=== PATIENT | male | born 1950 | race Caucasian/White ===

== ENCOUNTER 2019-09-11 17:17 | Observation (INO) | payer OTHER ==
--- OUTSIDE RECORDS SUMMARY | 2019-09-11 17:20 | XMS REPORT | Summary of Care ---
:1950 Author Organization [facility] Address [address] [place] [id number] Care Team Providers Name Role Phone Efrem Paiz MD Primary Care Provider [phone] Reason for Visit Reason Comments Refill Request Encounter Details Date Type Department Care Team Description 06/28/2019 Refill [facility] Family Medicine Efrem Gonzalez MD Refill Request - [address] [place] [address] [place] [address] [phone] Allergies No Known Allergiesdocumented as of this encounter (statuses as of 07/01/2019) Medications Medication Sig Dispensed Refills Start Date End Date Status valACYclovir Take 1 60 tablet 5 06/05/2018 Active (VALTREX) 500 mg tablet by tabletIndications: mouth 2 Lip ulcer (two) times daily. levothyroxine 150 Take 1 90 tablet 0 07/01/2019 A ctive mcg tablet by tabletIndications: mouth every Acquired morning. hypothyroidism levothyroxine 150 Take 1 30 tablet 5 10/14/2018 D iscontinued mcg tablet by 0 (Reorder) tabletIndications: mouth every Acquired morning. hypothyroidism documented as of this encounter (statuses as of 07/01/2019) Active Problems Problem Noted Date Essential hypertension 05/30/2016 Hypothyroid 02/22/2015 documented as of this encounter (statuses as of 07/01/2019) Social History Tobacco Use Types Packs/Day Years Used Date Never Smoker Smokeless Tobacco: Never Used Alcohol Use Drinks/Week oz/Week Comments No 0 Standard drinks or equivalent 0.0 Sex Assigned at Date Recorded Not on file Job Start Date Occupation Industry Not on file Not on file Not on file Travel History Travel Start Travel End No recent travel history available. documented as of this encounter Last Filed Vital Signs Not on filedocumented in this encounter Plan of Treatment Health Maintenance Due Date Last Done Comments HEPATITIS C (HCV) SCREEN 1950 DTaP,Tdap,and Td Vaccines (1 - Tdap) 09/10/1962 COLONOSCOPY 09/10/2001 Zoster Recombinant Vaccine (SHINGRIX) (1 of 2) 09/10/2001 Medicare Wellness Visit 09/10/2016 PNEUMOCOCCAL VACCINES 65+ (1 of 2 - PCV13) 09/10/2016 INFLUENZA VACCINE (#1) 2018 documented as of this encounter Results Not on filedocumented in this encounter Visit Diagnoses Diagnosis Acquired hypothyroidism Unspecified hypothyroidism documented in this encounter Insurance Payer Benefit Plan / Subscriber ID Effective Dates Phone Addre ss Type Group MEDICARE MEDICARE PART A xxxxxxxxxxx 2016-Jazz [phone] Medicare & [address] t [id number] ALLA CORNELIUS [phone] AETNA AETNA INDEMNITY [id number] 2016-Jazz Indemnity t documented as of this encounter
--- OUTSIDE RECORDS SUMMARY | 2019-09-11 17:20 | XMS REPORT ---
:1950 Author Organization [facility] t Address [address] [place] [address] Care Team Providers Name Role Phone Aki Paiz MD Attending Clinician Problems This patient has no known problems. Allergies, Adverse Reactions, Alerts This patient has no known allergies or adverse reactions. Medications This patient has no known medications. Procedures This patient has no known procedures. Encounters Start End Encounter Admission Attending Care Care Encounter Source Date/Time Date/Time Type Type Clinicians Facility Department ID 2019-06-28 2019-06-28 Refill HARLEY Paiz [id number] 00:00:00 00:00:00 [facility] [id number] Aki Yeboah [id number] Brett [id number] [address] Results This patient has no known results.
--- NOTE | 2019-09-11 17:46 | RAD REPORT ---
EXAM DESCRIPTION: RAD - Hand Right 3 View - 09/11/2019 5:34 pm CLINICAL HISTORY: SMASH INJURY COMPARISON: No comparisons FINDINGS: Tuft fracture is seen involving the second finger. Oblique mildly displaced fracture invol ves the middle phalanx of the third digit. Moderate soft tissue swelling.
[2019-09-11 18:13] LABS: Absolute Lymphocytes (CBC) 1.6 K/uL (0.7-4.9); Basophils % 0.7 % (0-1.3); Hematocrit 49.3 % (39.6-49.0); Lymphocytes % 16.3 % (15.3-44.8); RBC Red Blood Cell Count 5.59 M/uL (4.33-5.43)
[2019-09-11 18:22] LABS: Protime INR 1.06
[2019-09-11] MEDS ORDERED: CEFAZOLIN/SWI 1gm 1 GM/10 ML SYR ONE (18:23)
[2019-09-11] MEDS ORDERED: MORPHINE 2 MG/ML SYR ONE (18:23)
[2019-09-11] MEDS ORDERED: ONDANSETRON 4 MG/2 ML VIAL IV PRN (18:24)
[2019-09-11] MEDS ORDERED: ACETAMINOPHEN 500 MG TAB PO PRN (18:24)
[2019-09-11] MEDS ORDERED: MORPHINE 2 MG/ML SYR IV PRN (18:28)
[2019-09-11] MEDS ORDERED: HYDROCODONE/APAP 10/325 TAB PO PRN (18:28)
[2019-09-11] MEDS ORDERED: TETANUS & DIPHTHERIA TOX,ADULT 0.5 ML VIAL ONE (18:30)
[2019-09-11 18:39] LABS: Albumin 3.7 g/dL (3.4-5.0); Bilirubin Direct 0.1 mg/dL (0-0.2); Bilirubin Total 0.5 mg/dL (0.2-1.0); Potassium 4.1 mmol/L (3.5-5.1); Protein, Total 7.6 g/dL (6.4-8.2)
--- NOTE | 2019-09-11 18:50 | RAD REPORT ---
EXAM DESCRIPTION: RAD - Chest Single View - 09/11/2019 6:18 pm CLINICAL HISTORY: crush injury to right hand Chest pain. COMPARISON: Chest Single View dated 05/16/2016 FINDINGS: Portable technique limits examination quality. The lungs are grossly clear. The heart is normal in size. No displaced fractures. IMPRESSION: No acute intrathoracic process suspected.
--- NOTE | 2019-09-11 19:12 | P.HP ---
Certification for Inpatient Patient admitted to: Observation With expected LOS: <2 Midnights Practitioner: I am a practitioner with admitting privileges, knowledge of patient current condition, hospital course, and medical plan of care. Services: Services provided to patient in accordance with Admission requirements found in Title 42 Section 412.3 of the Code of Federal Regulations Patient History Date of Service: 09/11/19 Reason for admission: Pain in the fingers History of Present Illness: 69-year-old male with no significant past medical history other than hyperlipidemia and hypothyroidism came to ER with crashed injury of the right fingers. He was assisting a friend of him to repair tractor and all of a sudden injured his right index and middle finger . Complains of pain and difficulty in moment. Denies any other complaints Allergies No Known Allergies Allergy (Verified 05/16/16 05:49) Home medications list reviewed: Yes Home Medications: Thyroid Tab [[place] Thyroid*] 60 mg PO DAILY 05/16/16 Amlodipine [Norvasc*] 5 mg PO DAILY #30 tab 05/19/16 Levofloxacin [Levaquin] 500 mg PO DAILY #7 tablet 05/19/16 Metronidazole 500 mg PO TID #21 tablet 05/19/16 Pantoprazole [Protonix Tab*] 40 mg PO DAILYAC #30 tab 05/19/16 Tramadol HCl [Ultram] 50 mg PO Q4H PRN #20 tablet 05/20/16 - Past Medical/Surgical History Diabetic: No Past Medical History: Reviewed- Non-Contributory -: Hypothyroidism -: GERD Past Surgical History: Reviewed- Non-Contributory -: Hernia repair - Social History Smoking Status: Never smoker Alcohol use: Yes CD- Drugs: No Caffeine use: Yes Review of Systems 10-point ROS is otherwise unremarkable Physical Examination - Vital Signs Temperature: 97.8 F Blood Pressure: 142/78 Pulse: 76 - Physical Exam General: Alert, In no apparent distress, Obese HEENT: Atraumatic, Normocephalic Neck: Supple, 2+ carotid pulse no bruit Respiratory: Clear to auscultation bilaterally, Normal air movement Cardiovascular: Normal pulses, Regular rate/rhythm Capillary refill: <2 Seconds Gastrointestinal: Soft and benign, W/out hepatosplenomegaly Musculoskeletal: No clubbing, Tenderness, Warmth Integumentary: Tenderness/swelling, Other (Pain and swelling and crush injury right Index and middle finger ) Neurological: Normal speech, Normal strength at 5/5 x4 extr Lymphatics: No axilla or inguinal lymphadenopathy Rectal: Deferred - Studies Laboratory Data (last 24 hrs) 09/11/19 18:07: PT 12.5, INR 1.06 09/11/19 18:07: WBC 9.6, Hgb 16.3, Hct 49.3 H, Plt Count 351 09/11/19 18:07: Sodium 140, Potassium 4.1, BUN 22 H, Creatinine 1.27, Glucose 113 H, Total Bilirubin 0.5, AST 23, ALT 32, Alkaline Phosphatase 75 Assessment and Plan - Problems (Diagnosis) (1) Crushing injury of finger of right hand Current Visit: Yes Status: Acute Discharge Plan: Home Plan to discharge in: 24 Hours - Advance Directives Does patient have a Living Will: No Does patient have a Durable POA for Healthcare: No Physician Review Additional Text: Crush injury of the right fingers Hypothyroid Hyperlipidemia GERD Plan Pain control X-ray showed Tuft fracture is seen involving the second finger. Oblique mildly displaced fracture involves the middle phalanx of the third digit. Moderate soft tissue swelling. plastic surgery consult NPO post midnight Will add on Ancef Posted for surgery tomorrow Continue home medication GI/DVT prophylaxis Time Spent Managing Pts Care (In Minutes): 36
[2019-09-11 21:08] VITALS: BMI 28.6
[2019-09-12] MEDS ORDERED: CEFAZOLIN/NS 1gm 1 GM/50 ML BAG IVPB SCH (01:00)
[2019-09-12] MEDS ORDERED: CEFAZOLIN/SWI 1gm 1 GM/10 ML SYR ONE (01:37)
[2019-09-12 06:08] LABS: Absolute Lymphocytes (CBC) 1.3 K/uL (0.7-4.9); Basophils % 0.5 % (0-1.3); Hematocrit 44.9 % (39.6-49.0); Lymphocytes % 11.8 % (15.3-44.8)
[2019-09-12 06:20] LABS: Magnesium 2.2 mg/dL (1.8-2.4); Phosphorus 2.8 mg/dL (2.5-4.9); Potassium 3.9 mmol/L (3.5-5.1)
[2019-09-12 07:47] LABS: Urine Appearance CLEAR; Urine Bilirubin NEGATIVE (NEG); Urine Blood NEGATIVE (NEG); Urine Color YELLOW; Urine Glucose NEGATIVE (NEG); Urine Protein NEGATIVE (NEG); Urine Specific Gravity >=1.030 (1.005-1.030); Urine Urobilinogen 0.2 mg/dL (0.2-1.0)
[2019-09-12 07:58] LABS: Urine Microscopic Reflex NO UMIC
[2019-09-12] MEDS ORDERED: Ringers Lactate 1,000 ML IV ONE (08:17)
[2019-09-12] MEDS ORDERED: propofoL 200 MG/20 ML VIAL IV ONE (08:50)
[2019-09-12] MEDS ORDERED: LIDOCAINE 1% MPF 5 ML VIAL ONE (08:50)
[2019-09-12] MEDS ORDERED: ONDANSETRON 4 MG/2 ML VIAL ONE (08:50)
[2019-09-12] MEDS ORDERED: FENTANYL CITR 100 MCG/2 ML ONE (08:50)
[2019-09-12] MEDS ORDERED: MIDAZOLAM HCL 2 MG/2 ML INJ ONE (08:50)
[2019-09-12] MEDS ORDERED: dexAMETHasone 4 MG/ML VIAL ONE (08:51)
[2019-09-12] MEDS ORDERED: KETOROLAC 30 MG/ML INJ ONE (08:51)
[2019-09-12] MEDS ORDERED: CEFAZOLIN/SWI 1gm 1 GM/10 ML SYR IVP SCH (09:00)
[2019-09-12] MEDS: HYDRALAZINE HCL 20 MG/ML VIAL ONE ×2 (10:35→10:41)
[2019-09-12] MEDS: HYDROMORPHONE HCL 1 MG/ML INJ ONE ×2 (10:48→10:55)
[2019-09-12 10:58] VITALS: O2SAT 96
[2019-09-12] MEDS ORDERED: HYDRALAZINE HCL 20 MG/ML VIAL IV PRN (13:16)
[2019-09-12 14:07] VITALS: BP 164/80; TEMP 97.1
--- NOTE | 2019-09-12 14:07 | EKG ---
Test Date: 2019-09-11 Test Time: 18:36:06 Wildlife Ecologist: SANNA MEASUREMENT RESULTS: Intervals: Rate: 55 MN: 174 QRSD: 92 QT: 398 QTc: 380 [place]: P: 47 MN: 174 QRS: -20 T: 6 INTERPRETIVE STATEMENTS: Sinus bradycardia Moderate voltage criteria for LVH, may be normal variant Borderline ECG Compared to ECG 05/16/2016 03:01:06 Left ventricular hypertrophy now present Sinus rhythm no longer present Electronically Signed On 09-12-19 14:06:06 CDT by Bogdan Escalante
--- NOTE | 2019-09-12 20:51 | HP ---
Date of Admission: 09/11/2019 History Of Present Illness: A 69-year-old white male, right-hand dominant, who crushed his left index finger and left middle finger yesterday, came to the ER. Past Medical History: Thyroid surgery, hernia, lipoma, and left middle and ring finger tip amputation from crush injury in the past. Social History: Does not smoke. Drinks occasional. Physical Examination: General: He is 5 feet 10 inches, 200 pounds. Extremities: He has a transverse laceration and a volar laceration of the index finger with angulation of the tip. He has an open wound puncture site of the middle finger dorsal. Imaging: His x-ray showed fractures of the distal phalanx of the right index finger and the middle phalanx of the middle. Assessment: Open fracture. Plan: Debridement, ORIF, and closure. FLORIAN/KEVAN Voice ID: [id number]
--- NOTE | 2019-09-12 22:01 | RAD REPORT ---
EXAM DESCRIPTION: RAD - Hand Right 3 View - 09/12/2019 8:52 pm CLINICAL HISTORY: Distal phalanx fracture FINDINGS: Eighteen fluoroscopic spot images obtained. Fluoroscopy time 0.4 minutes A pin fuses the second PIP joint. A pin affixes a fracture of the third middle phalanx Surgery performed by Dr. Rosales
--- NOTE | 2019-09-12 23:27 | DS ---
Date of Discharge: 09/12/2019 Consultants: Dr. Rosales, Plastic Surgery. Procedures: On 09/12/2019, open reduction internal fixation 2nd and 3rd fingers of the right hand. Admitting Diagnoses: 1. Crush injury of 2nd and 3rd fingers of the right hand. 2. Hypothyroidism. 3. Gastroesophageal reflux disease. 4. Mixed hyperlipidemia. Hospital Course: Patient is a 69-year-old male with past medical history of hyperlipidemia, hypothyroidism, comes in with crush injury of the index and middle finger of his right hand due to trauma. Patient was started on IV pain medications, IV fluids, and IV antibiotics. Patient was seen by Dr. Rosales with Plastic Surgery. X-ray showed tuft fracture involving the 2nd finger/mildly displaced fracture involving the middle phalanx of the third digit, moderate soft tissue swelling. Patient was cleared for surgery and had ORIF done as mentioned above by Dr. Rosales. Patient did well postoperatively. His pain was well controlled. Patient was then cleared for discharge from surgical standpoint. Patient did not have any signs of sepsis. His vital signs were stable, he was afebrile. Blood pressure is somewhat not well controlled likely due to pain. He has never been diagnosed with it previously and is not on any medications at home. This may be related to his pain, however he should obtain a blood pressure cuff and keep a log of his blood pressure if continues to be elevated over 140s to 150 systolic. He will need to be started on blood pressure medications. This can be done as an outpatient and addressed by his primary care physician. He needs to follow up with plastic surgeon, Dr. Rosales, Friday morning, September 13, 2019, at 9 a.m. return to ER for worsening condition. Diet: Heart healthy. Activity: As tolerated. Medications: As per medication reconciliation list. Patient is going to finish off course of Bactrim and he was given Tylenol No.3 for pain. No driving or operating heavy machinery while on narcotics. Physical Examination: General: Awake, alert, and oriented x3. Elderly male, no acute distress. CV: S1, S2. Respiratory: Moving air well bilaterally. Abdomen: Abdomen is soft, nontender, nondistended. Positive bowel sounds. Extremities: No clubbing or cyanosis. Minimal edema of the right hand 2nd and 3rd digit in splint, bandaged. Clean, dry, intact. Neurologic: Nonfocal. SA/MODL Voice ID: [id number] Report ID: [id number] [facility]
[2019-09-13] MEDS ORDERED: HOME MED 1 EA UNK (Levothyroxine Sodium [Synthroid] 150 MCG) PO SCH (06:30)
[2019-09-13] MEDS ORDERED: LEVOTHYROXINE SOD 0.05 MG TABLET PO SCH (06:30)
[2019-09-13] MEDS ORDERED: LEVOTHYROXINE SOD 0.05 MG TABLET FT SCH (06:30)
--- NOTE | 2019-09-13 13:09 | OP ---
Surgeon: Brian Rosales MD Preoperative Diagnosis: Open fracture of the right index finger distal phalanx and right middle fing er middle phalanx with open wounds. Postoperative Diagnoses: Open fracture of the right index finger distal phalanx and right middle fin josefina middle phalanx with open wounds. Procedure Performed: Debridement of skin, subcutaneous tissue of the index, middle finger, nail bed repair of the index, simple closure of 3 cm of the index, fourth, and middle. Open reduction and int ernal fixation of the distal phalanx of the right index finger with K-wire arthrodesis and Open reduc tion and internal fixation of the middle phalanx of the middle finger with K-wire arthrodesis and spl int. Anesthesia: General. Procedure In Detail: After satisfactory induction of general anesthesia, the right hand was prepped with Betadine scrub and Betadine paint. Dry sterile drapes applied in the usual manner. Arm was celso vated and exsanguinated with Esmarch. Tourniquet inflated to 250 mmHg. Skin and subcutaneous tissue s were debrided as needed with a scalpel and forceps. Patient had a laceration over the volar flap o f the distal phalanx of the index finger and longitudinal lacerations over the middle phalanx of the middle finger. After the wounds were debrided, then they were jet lavaged, irrigated with 3 L of dil mack Betadine solution. 0.028 K-wire was passed from proximal to distal out the distal fracture fragm ent of the index finger and then proximally into the proximal portion of the distal phalanx and arthr odesing the DIP joint. C-arm revealed adequate reduction. Our attention was then turned to the midd le finger. 0.035 K-wire was passed from distal to proximal arthrodesing the DIP and then reducing th e fracture of the middle phalanx. C-arm revealed adequate reduction. The C-arm was moved to the [facility]. Then, the wounds were closed with 4-0 Prolene simple sutures vertical mattresses. Nail bed repa ired with 5-0 PDS. Nail plate was sewn, approximated with 4-0 Prolene. Dressed with Xeroform, 2 inc h Beth and aluminium splint holding the PIP and extension of the middle and index fingers. The luda ent tolerated the procedure well and returned to Recovery. GH/MODL Voice ID: [id number] Report ID: [id number]
--- NOTE | 2019-09-13 18:10 | EDPHYS ---
Physician Documentation [facility] Name: Efrem Osorio Age: 69 yrs Sex: Male : 1950 Arrival Date: 09/11/2019 Time: 17:18 Bed 17 Private MD: ED Physician Alfonso Magaña HPI: 09/10 17:58 This 69 yrs old Male presents to ER via Ambulatory with complaints of Finger cp Injury, Crush Injury To Hand. Historical: - Allergies: 17:33 No Known Allergies; em - PMHx: 17:33 GERD; Hypothyroidism; em - PSHx: 17:33 Hernia repair; em - Immunization history:: Last tetanus immunization: unknown. - Social history:: Smoking status: Patient denies any tobacco usage or history of. ROS: 18:00 MS/extremity: Positive for injury or acute deformity, laceration, pain, tenderness, of cp the right hand. 18:00 Eyes: Negative for injury, pain, redness, and discharge. cp 18:00 Constitutional: Negative for fever. 18:00 Respiratory: Negative for cough, shortness of breath, wheezing. 18:00 Abdomen/GI: Negative for abdominal pain, nausea, vomiting, and diarrhea. 18:00 Skin: Positive for laceration(s), of the middle phalanx of right middle finger and distal phalanx of right index finger. 18:00 All other systems are negative. Exam: 18:05 Constitutional: The patient appears in no acute distress, alert, awake, cp non-diaphoretic, non-toxic, well developed, well nourished. 18:05 Head/Face: Normocephalic, atraumatic. cp 18:05 Eyes: Periorbital structures: appear normal, Conjunctiva: normal, no exudate, no injection, Lids and lashes: appear normal, bilaterally. 18:05 ENT: External ear(s): are unremarkable, Nose: is normal, Mouth: Lips: moist, Oral mucosa: moist, Posterior pharynx: Airway: no evidence of obstruction, patent. 18:05 Chest/axilla: Inspection: normal, Palpation: is normal, no crepitus, no tenderness. 18:05 Cardiovascular: Rate: normal, Rhythm: regular. 18:05 Respiratory: the patient does not display signs of respiratory distress, Respirations: normal, no use of accessory muscles, labored breathing, is not present, Breath sounds: are clear throughout, no decreased breath sounds. 18:05 Abdomen/GI: Inspection: abdomen appears normal, Palpation: abdomen is soft and non-tender, in all quadrants. 18:05 Musculoskeletal/extremity: Perfusion: the extremity is normally perfused throughout, Sensation intact. 18:05 Skin: injury, laceration(s), of the middle phalanx of right middle finger, of the distal phalanx of right index finger, that can be described as no foreign body, irregular, with mild bleeding. 18:40 ECG was reviewed by the Attending Physician. Vital Signs: 17:29 BP 194 / 91; Pulse 58; Resp 20; Temp 97.8; Pulse Ox 95% on R/A; Weight 92.99 kg; Height em 5 ft. 10 in. (177.80 cm); Pain 5/10; 18:11 BP 175 / 89; Pulse 61; Resp 16 S; Pulse Ox 95% on R/A; ca1 19:10 BP 143 / 84; Pulse 77; Resp 16 S; Pulse Ox 100% on R/A; ca1 20:20 BP 131 / 84; Pulse 77; Resp 17 S; Pulse Ox 100% on R/A; ca1 17:29 Body Mass Index 29.41 (92.99 kg, 177.80 cm) em MDM: 17:41 Patient medically screened. cp 18:04 Physician consultation: Brian Rosales MD was called at 18:04, was contacted at 18:04, regarding consult, patient's condition, and will see patient tomorrow, would like admission per Dr. Felton Suarez MD. 18:16 Physician consultation: Felton Suarez MD was called at 18:16, was contacted at 18:16, regarding admission, to the medical/surgical unit. patient's condition. 18:16 Data reviewed: vital signs, nurses notes, radiologic studies, plain films, and as a cp result, I will admit patient. 09/10 18:03 Order name: Basic Metabolic Panel; Complete Time: 18:56 09/10 18:56 Interpretation: Normal except: CL 109; GLUC 113; BUN 22; GFR 56. cp 09/10 18:03 Order name: CBC with Diff; Complete Time: 18:56 cp 09/10 18:57 Interpretation: Normal except: RBC 5.59; HCT 49.3. cp 05/30 18:03 Order name: LFT's; Complete Time: 18:56 cp 05/30 18:57 Interpretation: Normal except: GLOB 3.9; A/G 0.9. cp 05/30 18:03 Order name: PT-INR; Complete Time: 18:56 cp /30 18:30 Order name: Urinalysis EDMS 09/10 18:30 Order name: Basic Metabolic Panel EDCT 09/10 17:29 Order name: Hand Right 3 View XRAY; Complete Time: 18:00 em 09/10 18:03 Order name: XRAY Chest (1 view); Complete Time: 18:56 cp 09/10 18:57 Interpretation: Report review. cp / 18:30 Order name: Basic Metabolic Panel EDCT 09/10 18:30 Order name: CBC with Automated Diff EDMS 09/10 18:30 Order name: CBC with Automated Diff EDMS 09/10 18:03 Order name: Wound Care: irrigate wounds and wet to dry dressing; Complete Time: 18:14 cp 09/10 18:03 Order name: EKG; Complete Time: 18:04 cp 09/10 18:03 Order name: Cardiac monitoring; Complete Time: 18:12 cp 09/10 18:03 Order name: EKG - Nurse/Tech; Complete Time: 18:39 cp 09/10 18:03 Order name: IV Saline Lock; Complete Time: 18:12 cp 09/10 18:03 Order name: Labs collected and sent; Complete Time: 18:13 cp 09/10 18:03 Order name: O2 Per Protocol; Complete Time: 18:13 cp 09/10 18:03 Order name: O2 Sat Monitoring; Complete Time: 18:13 cp 09/10 18:03 Order name: Splint: volar hand splint; Complete Time: 19:30 cp 09/10 18:30 Order name: Heart Healthy EDMS EC:40 Rate is 55 beats/min. Rhythm is regular. KS interval is normal. QRS interval is normal. cp QT interval is normal. T waves are Inverted in lead III. Interpreted by me. Reviewed by me. Administered Medications: 18:16 Drug: morphine 2 mg {Note: rass -0.} Route: IVP; Site: left antecubital; ca1 19:03 Follow up: Response: No adverse reaction; Pain is decreased; RASS: Alert and Calm (0) ca1 18:18 Drug: Ancef 1 grams Route: IVPB; Site: left antecubital; ca1 19:03 Follow up: Response: No adverse reaction; IV Status: Completed infusion ca1 18:39 Drug: Tetanus-Diphtheria Toxoid Adult 0.5 ml {Windows Support Engineer: [email or web address]. Exp: ca1 05/28/2021. Lot #: [id number]. } Route: IM; Site: right deltoid; 19:03 Follow up: Response: No adverse reaction ca1 Disposition: 09/11 14:33 Co-signature as Attending Physician, Alfonso Magaña MD I agree with the assessment and kdr plan of care. Disposition: 09/11/19 18:18 Hospitalization ordered by Felton Suarez for Observation. Preliminary diagnosis are Displaced fracture of medial phalanx of right middle finger - open, Displaced fracture of distal phalanx of right index finger - open with damage to nail. - Bed requested for Telemetry/MedSurg (observation). - Status is Observation. ca1 - Condition is Stable. - Problem is new. - Symptoms have improved. Signatures: Dispatcher [employer] EDMS Alfonso Magaña MD MD [facility] Stanley Garner RN RN em Mario Trevino PA PA cp Amanda Ramos RN RN Chely Woods RN RN ca1 Corrections: (The following items were deleted from the chart) 09/10 18:56 18:18 Hospitalization Ordered by Felton Suarez MD for Observation. Preliminary cg diagnosis is Displaced fracture of medial phalanx of right middle finger - open; Displaced fracture of distal phalanx of right index finger - open with damage to nail. Bed requested for Telemetry/MedSurg (observation). Status is Observation. Condition is Stable. Problem is new. Symptoms have improved. cp 20:54 18:56 09/11/2019 18:18 Hospitalization Ordered by Felton Suarez MD for Observation. ca1 Preliminary diagnosis is Displaced fracture of medial phalanx of right middle finger - open; Displaced fracture of distal phalanx of right index finger - open with damage to nail. Bed requested for Telemetry/MedSurg (observation). Status is Observation. Condition is Stable. Problem is new. Symptoms have improved. cg
--- NOTE | 2019-09-13 18:10 | ER ---
Nurse's Notes [facility] Name: Efrem Osorio Age: 69 yrs Sex: Male : 1950 Arrival Date: 09/11/2019 Time: 17:18 Bed 17 Private MD: Diagnosis: Displaced fracture of medial phalanx of right middle finger-open;Displaced fracture of distal phalanx of right index finger-open with damage to nail Presentation: 09/10 17:29 Chief complaint: Patient states: was working on a tractor and got his 2 nd and 3 rd em digit on right hand smashed between a cheater pipe and a wrench, crush injury noted to 3 rd digit, noted on 2 nd digit fingetnail, unknown if tetanus is up-to-date. Coronavirus screen: Proceed with normal triage. Patient denies a cough. Patient denies shortness of breath or difficulty breathing. Patient denies measured and/or subjective temperature greater than 100.4F prior to today's visit. Patient denies travel on a cruise ship or to a country the [facility] currently lists as an affected area. Patient denies contact with known and/or suspected case of COVID-19. Ebola Screen: Patient negative for fever greater than or equal to 101.5 degrees Fahrenheit, and additional compatible Ebola Virus Disease symptoms Patient denies exposure to infectious person. Patient denies travel to an Ebola-affected area in the 21 days before illness onset. No symptoms or risks identified at this time. Initial Sepsis Screen: Does the patient meet any 2 criteria? No. Patient's initial sepsis screen is negative. Does the patient have a suspected source of infection? Yes: Skin breakdown/wound. Risk Assessment: Do you want to hurt yourself or someone else? Patient reports no desire to harm self or others. Onset of symptoms was September 11, 2019 at 17:00. 17:29 Method Of Arrival: Ambulatory em 17:29 Acuity: ALEJANDRO 4 em Historical: - Allergies: 17:33 No Known Allergies; em - PMHx: 17:33 GERD; Hypothyroidism; em - PSHx: 17:33 Hernia repair; em - Immunization history:: Last tetanus immunization: unknown. - Social history:: Smoking status: Patient denies any tobacco usage or history of. Screenin:40 Abuse screen: Denies threats or abuse. Denies injuries from another. Nutritional ca1 screening: No deficits noted. Tuberculosis screening: No symptoms or risk factors identified. Fall Risk IV access (20 points). Assessment: 17:40 General: Appears in no apparent distress. comfortable, Behavior is calm, cooperative, ca1 appropriate for age. Pain: Complains of pain in right hand. Neuro: Level of Consciousness is awake, alert, obeys commands, Oriented to person, place, time, situation. Cardiovascular: Heart tones S1 S2 present Capillary refill < 3 seconds Patient's skin is warm and dry. Respiratory: Airway is patent Respiratory effort is even, unlabored, Respiratory pattern is regular, symmetrical, Breath sounds are clear bilaterally. GI: Abdomen is round non-distended, Bowel sounds present X 4 quads. Abd is soft and non tender X 4 quads. : No signs and/or symptoms were reported regarding the genitourinary system. EENT: No signs and/or symptoms were reported regarding the EENT system. Derm: Skin is healthy with good turgor, Skin is pink, warm \T\ dry. Musculoskeletal: Circulation, motion, and sensation intact. Capillary refill < 3 seconds. Injury Description: Laceration sustained to dorsal aspect of distal phalanx of right index finger and palmar aspect of middle phalanx of right middle finger is jagged, 0.5 to 2.5 cm long, not bleeding, was sustained 30-60 minutes ago. a small amount of bleeding noted at this time. 18:11 Reassessment: Patient appears in no apparent distress at this time. Patient is alert, ca1 oriented x 3, equal unlabored respirations, skin warm/dry/pink. 19:12 Reassessment: Patient appears in no apparent distress at this time. Patient is alert, ca1 oriented x 3, equal unlabored respirations, skin warm/dry/pink. 19:47 Reassessment: Patient appears in no apparent distress at this time. awaiting a call sg back from receiving nurse for 228 at this time. 19:55 Reassessment: Report given to receiving nurse on second floor. ea 20:10 Reassessment: Patient appears in no apparent distress at this time. Patient and/or ca1 family updated on plan of care and expected duration. Pain level reassessed. Patient is alert, oriented x 3, equal unlabored respirations, skin warm/dry/pink. Vital Signs: 17:29 BP 194 / 91; Pulse 58; Resp 20; Temp 97.8; Pulse Ox 95% on R/A; Weight 92.99 kg; Height em 5 ft. 10 in. (177.80 cm); Pain 5/10; 18:11 BP 175 / 89; Pulse 61; Resp 16 S; Pulse Ox 95% on R/A; ca1 19:10 BP 143 / 84; Pulse 77; Resp 16 S; Pulse Ox 100% on R/A; ca1 20:20 BP 131 / 84; Pulse 77; Resp 17 S; Pulse Ox 100% on R/A; ca1 17:29 Body Mass Index 29.41 (92.99 kg, 177.80 cm) em ED Course: 17:18 Patient arrived in ED. ag5 17:29 Chely Woods, ANUEL is Primary Nurse. ca1 17:33 Triage completed. em 17:33 Arm band placed on. em 17:34 Hand Right 3 View XRAY In Process Unspecified. EDMS 17:36 Mario Trevino PA is PHCP. cp 17:36 Alfonso Magaña MD is Attending Physician. cp 17:40 Patient has correct armband on for positive identification. Bed in low position. Call ca1 light in reach. Side rails up X2. Pulse ox on. NIBP on. 17:[address] Rosales with Mario GOLD for patient consultation. eb 18:05 Initial lab(s) drawn, by me, sent to lab. Inserted saline lock: 18 gauge in left ca1 antecubital area, using aseptic technique. Blood collected. 18:16 Felton Suarez MD is Hospitalizing Provider. cp 18:19 XRAY Chest (1 view) In Process Unspecified. EDMS 19:13 No provider procedures requiring assistance completed. Wound care: to laceration ca1 located on palmar aspect of middle phalanx of right middle finger and dorsal aspect of distal phalanx of right index finger was soaked in Betadine solution, irrigated with normal saline, dressed with 4X4s, Kerlix, Patient tolerated well. 19:13 Patient admitted, IV remains in place. ca1 19:31 Orthoglass splint: Volar splint applied on right arm. dh4 Administered Medications: 18:16 Drug: morphine 2 mg {Note: rass -0.} Route: IVP; Site: left antecubital; ca1 19:03 Follow up: Response: No adverse reaction; Pain is decreased; RASS: Alert and Calm (0) ca1 18:18 Drug: Ancef 1 grams Route: IVPB; Site: left antecubital; ca1 19:03 Follow up: Response: No adverse reaction; IV Status: Completed infusion ca1 18:39 Drug: Tetanus-Diphtheria Toxoid Adult 0.5 ml {[employer]: [employer]. Exp: ca1 05/28/2021. Lot #: [id number]. } Route: IM; Site: right deltoid; 19:03 Follow up: Response: No adverse reaction ca1 Outcome: 18:18 Decision to Hospitalize by Provider. cp 20:43 Admitted to Med/surg accompanied by tech, via wheelchair, room 226, with chart. ca1 20:43 Condition: stable 20:43 Instructed on the need for admit. 20:54 Patient left the ED. ca1 Signatures: Dispatcher [employer] Kade Rodríguez RN RN sg Munoz, Edgar RN RN Mario Lala PA PA cp Hailey Rivas, Yanique Mesa RN, ea, Cheryl, RN RN ca1 Martha Huang [facility] William Ortega
== END 2019-09-12 15:39 | disposition home or self-care (01) ==
LOC: ER 17:17 → ERHOLD 18:26 → 2ND 19:57
PROVIDERS: ADMIT Family Medicine; ATTEND Family Medicine
PROC: 0PST04Z Reposition Right Finger Phalanx with Internal Fixation Device, Open Approach (ICD-10-PCS; 2019-09-12)
PROC: 0PST04Z Reposition Right Finger Phalanx with Internal Fixation Device, Open Approach (ICD-10-PCS; principal; 2019-09-12 10:00)
DX: S62.630A Displaced fracture of distal phalanx of right index finger, initial encounter for closed fracture (principal); S62.632A Displaced fracture of distal phalanx of right middle finger, initial encounter for closed fracture; E03.9 Hypothyroidism, unspecified; K21.9 Gastro-esophageal reflux disease without esophagitis; E78.2 Mixed hyperlipidemia; X58.XXXA Exposure to other specified factors, initial encounter
CPT/HCPCS: 96365; 93005; 85025 ×2; 80048 ×2; 36415; 83735; 84100; 85610; 80076; 81003; 71045; 73130 ×2; 90471; 90714; 96375; 99285; 26765 ×2; J0360; J2704; J2250; J3010; J2270; J1170; J0690; G0378 ×4; J7120; J2405

== ENCOUNTER 2020-05-02 17:07 | Emergency (ER) | payer OTHER ==
--- OUTSIDE RECORDS SUMMARY | 2020-05-02 17:09 | XMS REPORT | Continuity of Care Document ---
:1950 Author Organization [facility] t Address [address] [place] [address] Care Team Providers Name Role Phone 2, Lab Attending Clinician Unavailable Chencho ABARCA, Aki Attending Clinician Doctor Unassigned, Name Attending Clinician Unavailable Problems This patient has no known problems. Allergies, Adverse Reactions, Alerts This patient has no known allergies or adverse reactions. Medications This patient has no known medications. Procedures This patient has no known procedures. Encounters Start End Encounter Admission Attending Care Care Encounter Source Date/Time Date/Time Type Type Clinicians Facility Department ID 2019-10-13 2019-10-13 Attraction Attendant 2, [facility] [id number] 10:24:01 10:39:01 Visit Obinna [id number] William [id number] [place] [phone] [facility] [address] [facility] 2019-10-13 2019-10-13 Office HARLEY Paiz [id number] 09:59:10 10:23:33 Visit Biju Yeboah [id number] Aki Thomas [id number] Professio [phone] [place] 044 [facility] 2019-10-13 2019-10-13 Orders Doctor TIWARI [id number] 00:00:00 00:00:00 Only UnassignedJOSE LUIS [id number] [place] [facility] [id number] [id number] Results This patient has no known results.
[2020-05-02 18:16] LABS: Absolute Lymphocytes (CBC) 1.1 K/uL (0.7-4.9); Basophils % 0.8 % (0-1.3); Hematocrit 47.4 % (39.6-49.0); Lymphocytes % 10.5 % (15.3-44.8); MPV 7.4 fL (7.6-11.3); RBC Red Blood Cell Count 5.48 M/uL (4.33-5.43)
[2020-05-02 18:33] LABS: Albumin 3.6 g/dL (3.4-5.0); Bilirubin Total 0.6 mg/dL (0.2-1.0); Potassium 4.3 mmol/L (3.5-5.1); Protein, Total 7.9 g/dL (6.4-8.2)
--- NOTE | 2020-05-02 19:08 | RAD REPORT ---
EXAM DESCRIPTION: CT - Head C Spine Cap W Con - 05/02/2020 6:33 pm CLINICAL HISTORY: PAIN, fall from a 5 foot height landing on the right side, right-sided head, neck, chest and abdomen pain COMPARISON: Chest Abdomen Pelvis W Cont dated 05/16/2016 TECHNIQUE: Axial [address] head images were obtained. Axial [address] cervical spine images were obtaine d with sagittal and coronal reconstruction images reviewed. During dynamic enhancement of 100mL non-i onic contrast, axial 5 mm images of the chest, abdomen and pelvis were obtained. Biphasic technique p erformed of the abdomen and pelvis. All CT scans are performed using dose optimization technique as appropriate and may include automated exposure control or mA/KV adjustment according to patient size. FINDINGS: No intracranial hemorrhage, mass or edema. No midline shift or abnormal fluid collection. Mastoid air cells and paranasal sinuses are clear. No skull fracture. CT cervical spine imaging shows normal height. Normal alignment of the vertebrae. C5-6 and C6-7 disc space narrowing present. No fracture or acute vertebral body finding. Bilateral bony foraminal encroa chment at C5-6 from uncovertebral joint hypertrophy. Posterior endplate spurring changes cause border line spinal stenosis to 10 mm. Minimal bony foraminal encroachment at C6-7. No paraspinal mass or hem atoma seen. Central canal detail is inherently limited. Concerns for traumatic disc herniation or tra umatic cord injury can be further addressed with MR imaging. No pneumothorax seen. Minimal atelectasis present in both lung jc. Minimal amount of pleural flui d or blood identified. No measurable pulmonary contusion. No mediastinal hematoma and the aorta and p ulmonary arteries are unremarkable. No chest will mass or abnormal axillary finding. Nondisplaced pos terior right seventh and eighth rib fractures are present. CT abdomen and pelvis show no injury to solid abdominal viscera. Gallbladder and biliary tree are unr emarkable. No bowel injury or significant finding. No free air, free fluid or abnormal stranding. No urinary bladder abnormality. There is a large cleft in the superior aspect of the L3 body. Posterior wall height is preserved. Thi s is a new finding from the 2017 CT study. There is no paraspinal mass or hematoma. This is probably but not definitively chronic. Given the trauma setting, follow-up MR imaging may be needed to assess for active edema in the L3 body. Significant L4-5 and L5-S1 degenerative disc disease present progressive from 2017. No fracture of th e bony pelvis. No dislocation or fracture of the proximal femora. No significant vascular finding. IMPRESSION: No significant CT Head finding. Cervical spine degenerative changes are present but no acute finding identifiable. Posterior right seventh and eighth rib nondisplaced fractures are present. There is no pneumothorax a lthough there is a small amount of pleural reactive fluid or pleural blood. Large cleft is present in the superior aspect of the L3 body. This is favored to be chronic but not d efinitive. Posterior wall height is preserved. No encroachment into the central canal. Correlation is needed with any back pain symptoms related to the fall. Follow-up MR imaging could be performed as w arranted. No acute traumatic injury to the bowel or solid abdominal viscera.
--- NOTE | 2020-05-02 19:15 | RAD REPORT ---
EXAM DESCRIPTION: RAD - Chest Single View - 05/02/2020 6:53 pm CLINICAL HISTORY: Blunt chest trauma;Pain COMPARISON: Portable August 2019 TECHNIQUE: AP portable chest image was obtained 05/02/2020 6:53 pm . FINDINGS: No pulmonary contusion, pneumothorax or acute lung parenchymal process. No failure or volu me overload. Minimal costophrenic angle blunting present on the right. Heart and vasculature are norm al. No measurable pleural effusion and no pneumothorax. Nondisplaced posterior right seventh and eigh th rib fractures are evident. No acute aortic findings suspected. IMPRESSION: Posterior right seventh and eighth ribs are fractured without displacement. No pneumothorax is present. There is trace pleural fluid or pleural blood on the right.
[2020-05-02] MEDS ORDERED: NA CHLORIDE 0.9% 1,000 ML ONE (19:41)
--- NOTE | 2020-05-02 20:26 | RAD REPORT ---
EXAM DESCRIPTION: MRI - Lumbar Spine Wo Con - 05/02/2020 8:15 pm CLINICAL HISTORY: PAIN, fall, back pain, abnormal L3 body COMPARISON: Head C Spine Cap W Con dated 05/02/2020 TECHNIQUE: Sagittal T1-weighted, T2-weighted and T2-STIR weighted sequences were obtained. Axial T1 -weighted and heavily T2-weighted sequenceswere obtained through the lumbar disc levels. FINDINGS: L3 vertebral body demonstrates the large left projecting inward from the superior endplate seen on the CT trauma Kaushik. This is believed to be a large Schmorl's node extending further into t he vertebral body than typically seen. There are fatty marrow degenerative changes scattered througho ut this vertebral body similar to elsewhere in the lumbar spine. No active marrow edema or marrow rep lacing process seen. No indication for acute traumatic injury to the L3 body. Remaining lumbar vertebrae are normal in height. No subluxation abnormality. Fatty marrow degenerativ e changes are present with chronic marrow degenerative changes abutting the L4-5 and L5-S1 disc space s. No suspicious marrow signal. No paraspinal masses. Conus is normal with no clumping or thickening of the cauda equina. T12-L1 level: No significant findings. L1-2 level: No significant findings. L2-3 level: Disc is thinned and desiccated. Mild disc bulge is present without canal or foramen steno sis. Facet degenerative change and ligamentous thickening present at this level. L3-4 level: Disc is desiccated without loss in disc height. No canal or foramen stenosis. Facet degen erative change and ligamentous thickening present. L4-5 level: Disc desiccation with significant loss in disc height. Posterior disc bulge and endplate spurring changes are present. Facet degenerative changes are present with ligamentous thickening. Fin dings are more pronounced on the right. No central spinal stenosis. Patient has mild to moderate left -side and moderately severe right-sided foraminal stenosis. L5-S1 level: Disc is thinned and desiccated with loss in disc height. Mild circumferential bulging of disc material seen. No canal or foramen stenosis. Facet degenerative changes are relatively mild. IMPRESSION: No acute injury to the L3 vertebral body. Patient has a large cleft that represents a Sc hmorl's node that extends further into the vertebral body than typically seen. Elsewhere there are no acute findings the lumbar spine. Patient has advanced degenerative change in t he lower 2 disc levels with significant foraminal stenoses at L4-5.
--- NOTE | 2020-05-02 20:36 | ER ---
Nurse's Notes [facility] Name: Efrem Osorio Age: 69 yrs Sex: Male : 1950 Arrival Date: 05/02/2020 Time: 17:08 Bed 18 Private MD: Diagnosis: Strain of muscle and tendon of back wall of thorax;Fall (on) (from) unspecified stairs and steps;Multiple fractures of ribs, right side;Pleural effusion in conditions classified elsewhere Presentation: 05/02 17:52 Chief complaint: Patient states: I fell from 5 ft high to a concrete landed on R side. ca1 Pain on back on the R side, R rib started about 3-4 days ago. Pain is stabbing pain, pain with movement or coughing. Coronavirus screen: Client denies travel out of the [place] in the last 14 days. At this time, the client does not indicate any symptoms associated with coronavirus-19. Ebola Screen: Patient negative for fever greater than or equal to 101.5 degrees Fahrenheit, and additional compatible Ebola Virus Disease symptoms Patient denies exposure to infectious person. Patient denies travel to an Ebola-affected area in the 21 days before illness onset. No symptoms or risks identified at this time. Initial Sepsis Screen: Does the patient meet any 2 criteria? No. Patient's initial sepsis screen is negative. Does the patient have a suspected source of infection? No. Patient's initial sepsis screen is negative. Risk Assessment: Do you want to hurt yourself or someone else? Patient reports no desire to harm self or others. Onset of symptoms was May 02, 2020. 17:52 Method Of Arrival: Ambulatory ca1 17:52 Acuity: ALEJANDRO 3 ca1 Historical: - Allergies: 17:55 No Known Allergies; ca1 - PMHx: 17:55 GERD; Hypothyroidism; ca1 - PSHx: 17:55 Hernia repair; ca1 - Immunization history:: Pneumococcal vaccine is not up to date, Flu vaccine is not up to date. - Social history:: Smoking status: Patient denies any tobacco usage or history of. - Family history:: not pertinent. Screenin:10 Abuse screen: Denies threats or abuse. Nutritional screening: No deficits noted. jb4 Tuberculosis screening: No symptoms or risk factors identified. Fall Risk None identified. Assessment: 19:10 General: Appears in no apparent distress. comfortable, Behavior is calm, cooperative, jb4 appropriate for age. Pain: Complains of pain in right lateral posterior chest Pain does not radiate. Pain currently is 0 out of 10 on a pain scale. at worst was 6 out of 10 on a pain scale. Quality of pain is described as sharp. Neuro: Level of Consciousness is awake, alert, obeys commands, Oriented to person, place, time, situation. Cardiovascular: Patient's skin is warm and dry. Respiratory: Airway is patent Respiratory effort is even, unlabored, Respiratory pattern is regular, symmetrical, Denies cough, shortness of breath labored breathing. GI: No signs and/or symptoms were reported involving the gastrointestinal system. : No signs and/or symptoms were reported regarding the genitourinary system. EENT: No signs and/or symptoms were reported regarding the EENT system. Derm: Skin is intact, Skin is pink, warm \T\ dry. Musculoskeletal: Circulation, motion, and sensation intact. Range of motion: intact in all extremities. 20:00 Reassessment: Patient appears in no apparent distress at this time. Patient and/or jb4 family updated on plan of care and expected duration. Pain level reassessed. Patient is alert, oriented x 3, equal unlabored respirations, skin warm/dry/pink. 21:00 Reassessment: Patient appears in no apparent distress at this time. Patient and/or jb4 family updated on plan of care and expected duration. Pain level reassessed. Patient is alert, oriented x 3, equal unlabored respirations, skin warm/dry/pink. Vital Signs: 17:52 BP 171 / 81; Pulse 59; Resp 16 S; Temp 97.8(TE); Pulse Ox 97% on R/A; Weight 90.72 kg ca1 (R); Height 5 ft. 10 in. (177.80 cm) (R); Pain 10/10; 20:00 BP 168 / 78; Pulse 61; Resp 16; Pulse Ox 100% on R/A; jb4 17:52 Body Mass Index 28.70 (90.72 kg, 177.80 cm) ca1 ED Course: 17:08 Patient arrived in ED. ds1 17:13 Mario Stevens MD is Attending Physician. jessica 17:54 Triage completed. ca1 17:55 Arm band placed on right wrist. ca1 18:08 Initial lab(s) drawn, by in, sent to lab. Inserted saline lock: 22 gauge in right ca1 forearm, using aseptic technique. Blood collected. 18:34 CT Traumagram (Head C Spine CAP W Con) In Process Unspecified. EDMS 18:54 Chest Single View XRAY In Process Unspecified. EDMS 19:10 Patient has correct armband on for positive identification. Bed in low position. Call jb4 light in reach. Side rails up X 1. Pulse ox on. NIBP on. 19:13 Efrem Villalta, RN is Primary Nurse. jb4 19:46 Randolph Guerrero PA is PHCP. [facility] 20:12 MRI Lumbar Spine wo Con In Process Unspecified. EDMS 20:13 Johan Alejandro MD is Referral Physician. [facility] 20:35 Johan Alejandro MD is Referral Physician. [facility] 21:00 No provider procedures requiring assistance completed. IV discontinued, intact, jb4 bleeding controlled, No redness/swelling at site. Pressure dressing applied. Administered Medications: Discontinued: NS 0.9% 1000 ml IV at 1 bolus Per protocol; 1000 mL bolus 19:34 Drug: NS 0.9% 1000 ml Route: IV; Rate: 1 bolus; Site: right forearm; jb4 20:00 Follow up: Response: No adverse reaction; IV Intake: 100ml ; Pt requested infusionbe jb4 stopped. Intake: 20:00 IV: 100ml; Total: 100ml. jb4 Outcome: 20:13 Discharge ordered by . [facility] 20:35 Discharge ordered by MD. [facility] 21:00 Discharged to home ambulatory. jb4 21:00 Condition: stable 21:00 Discharge instructions given to patient, Instructed on discharge instructions, follow up and referral plans. medication usage, Demonstrated understanding of instructions, follow-up care, medications, Prescriptions given X 3. 21:06 Patient left the ED. rr5 Signatures: Dispatcher [employer] EDMI Mario Stevens MD MD cha Mickail, Joel, PA PA Deena Covarrubias ds1 Efrem Villalta, ANUEL RN jb4 Tang Rueda RN RN rr5 Chely Woods RN RN ca1 Corrections: (The following items were deleted from the chart) 17:58 17:52 Chief complaint: Patient states: I fell from 5 ft high to a concrete landed on R ca1 side. Pain on back on the R side, R rib started about 3-4 days ago ca1 17:58 17:52 Acuity: ALEJANDRO 4 ca1 ca1
--- NOTE | 2020-05-02 20:36 | EDPHYS ---
Physician Documentation [facility] Name: Efrem Osorio Age: 69 yrs Sex: Male : 1950 Arrival Date: 05/02/2020 Time: 17:08 Bed 18 Private MD: REID Physician Mario Stevens HPI: 05/02 18:05 This 69 yrs old Male presents to ER via Ambulatory with complaints of Rib jessica Pain, Back Pain. 18:05 The patient presents with pain that is acute, and decreased range of motion. The jessica symptoms are located in the left scapular area, right scapular area, left subscapular area, right subscapular area, thoracic area, left mid back and right mid back. Onset: The symptoms/episode began/occurred 5 day(s) ago. The pain does not radiate. Associated signs and symptoms: The patient has no apparent associated signs or symptoms. The problem was sustained during a fall, off trailer 5 days ago. Modifying factors: The patient symptoms are alleviated by remaining still, the patient symptoms are aggravated by coughing. Severity of symptoms: At their worst the symptoms were moderate, in the emergency department the symptoms have improved, moderately. The patient has not experienced similar symptoms in the past. Historical: - Allergies: 17:55 No Known Allergies; ca1 - PMHx: 17:55 GERD; Hypothyroidism; ca1 - PSHx: 17:55 Hernia repair; ca1 - Immunization history:: Pneumococcal vaccine is not up to date, Flu vaccine is not up to date. - Social history:: Smoking status: Patient denies any tobacco usage or history of. - Family history:: not pertinent. ROS: 18:05 Constitutional: Negative for fever, chills, and weight loss, Eyes: Negative for injury, jessica pain, redness, and discharge, ENT: Negative for injury, pain, and discharge, Neck: Negative for injury, pain, and swelling, Cardiovascular: Negative for chest pain, palpitations, and edema, Respiratory: Negative for shortness of breath, cough, wheezing, and pleuritic chest pain, Abdomen/GI: Negative for abdominal pain, nausea, vomiting, diarrhea, and constipation, : Negative for injury, bleeding, discharge, and swelling, MS/Extremity: Negative for injury and deformity, Skin: Negative for injury, rash, and discoloration, Neuro: Negative for headache, weakness, numbness, tingling, and seizure, Psych: Negative for depression, anxiety, suicide ideation, homicidal ideation, and hallucinations, Allergy/Immunology: Negative for hives, rash, and allergies, Endocrine: Negative for neck swelling, polydipsia, polyuria, polyphagia, and marked weight changes, Hematologic/Lymphatic: Negative for swollen nodes, abnormal bleeding, and unusual bruising. 18:05 Back: Positive for pain at rest, pain with movement. 19:38 Back: Positive for of the . jessica Exam: 18:05 Constitutional: This is a well developed, well nourished patient who is awake, alert, jessica and in no acute distress. Head/Face: Normocephalic, atraumatic. Eyes: Pupils equal round and reactive to light, extra-ocular motions intact. Lids and lashes normal. Conjunctiva and sclera are non-icteric and not injected. Cornea within normal limits. Periorbital areas with no swelling, redness, or edema. ENT: Nares patent. No nasal discharge, no septal abnormalities noted. Tympanic membranes are normal and external auditory canals are clear. Oropharynx with no redness, swelling, or masses, exudates, or evidence of obstruction, uvula midline. Mucous membranes moist. Neck: Trachea midline, no thyromegaly or masses palpated, and no cervical lymphadenopathy. Supple, full range of motion without nuchal rigidity, or vertebral point tenderness. No Meningismus. Chest/axilla: Normal chest wall appearance and motion. Nontender with no deformity. No lesions are appreciated. Cardiovascular: Regular rate and rhythm with a normal S1 and S2. No gallops, murmurs, or rubs. Normal PMI, no JVD. No pulse deficits. Respiratory: Lungs have equal breath sounds bilaterally, clear to auscultation and percussion. No rales, rhonchi or wheezes noted. No increased work of breathing, no retractions or nasal flaring. Abdomen/GI: Soft, non-tender, with normal bowel sounds. No distension or tympany. No guarding or rebound. No evidence of tenderness throughout. Back: No spinal tenderness. No costovertebral tenderness. Full range of motion. Male : Normal genitalia with no discharge or lesions. Skin: Warm, dry with normal turgor. Normal color with no rashes, no lesions, and no evidence of cellulitis. MS/ Extremity: Pulses equal, no cyanosis. Neurovascular intact. Full, normal range of motion. Neuro: Awake and alert, GCS 15, oriented to person, place, time, and situation. Cranial nerves II-XII grossly intact. Motor strength 5/5 in all extremities. Sensory grossly intact. Cerebellar exam normal. Normal gait. Psych: Awake, alert, with orientation to person, place and time. Behavior, mood, and affect are within normal limits. 19:38 Back: no lumbar pain, hx of 2 years ago fall , old trauma to lumbar. jessica Vital Signs: 17:52 BP 171 / 81; Pulse 59; Resp 16 S; Temp 97.8(TE); Pulse Ox 97% on R/A; Weight 90.72 kg ca1 (R); Height 5 ft. 10 in. (177.80 cm) (R); Pain 10/10; 20:00 BP 168 / 78; Pulse 61; Resp 16; Pulse Ox 100% on R/A; jb4 17:52 Body Mass Index 28.70 (90.72 kg, 177.80 cm) ca1 MDM: 18:08 Differential diagnosis: Fatigue Fracture Ligament Injury Obesity Renal Infarction jessica ruptured disc, spinal injury, sprain, Ureterolithiasis vertebral fracture. Data reviewed: vital signs, nurses notes, lab test result(s), radiologic studies. Data interpreted: pitch gatherer: rate is 59 beats/min, rhythm is regular, Pulse oximetry: on room air is 97 %. Test interpretation: by ED physician or midlevel provider: plain radiologic studies. Counseling: I had a detailed discussion with the patient and/or guardian regarding: the historical points, exam findings, and any diagnostic results supporting the discharge/admit diagnosis, lab results, radiology results, the need for outpatient follow up, for definitive care, a general surgeon. 19:30 Patient medically screened. [facility] 05/02 18:04 Order name: CBC with Diff; Complete Time: 18:[address] [facility] 05/02 18:04 Order name: Comprehensive Metabolic Panel; Complete Time: 18:[address] [facility] 05/02 18:04 Order name: Lipase; Complete Time: 18:[address] [facility] 05/02 18:04 Order name: CT Traumagram (Head C Spine CAP W Con); Complete Time: 19:[address] [facility] 05/02 18:10 Order name: Chest Single View XRAY; Complete Time: 19:[address] [facility] 05/02 20:45 Order name: Urine Dipstick--Ancillary (enter results) tt3 05/02 18:13 Order name: INCENTIVE SPIROMETRY [facility] 05/02 19:27 Order name: MRI Lumbar Spine wo Con; Complete Time: 20:[address] [facility] Administered Medications: Discontinued: NS 0.9% 1000 ml IV at 1 bolus Per protocol; 1000 mL bolus 19:34 Drug: NS 0.9% 1000 ml Route: IV; Rate: 1 bolus; Site: right forearm; jb4 20:00 Follow up: Response: No adverse reaction; IV Intake: 100ml ; Pt requested infusionbe jb4 stopped. Disposition: 05/02/20 20:35 Discharged to Home. Impression: Strain of muscle and tendon of back wall of thorax, Fall (on) (from) unspecified stairs and steps, Multiple fractures of ribs, right side, Pleural effusion in conditions classified elsewhere. - Condition is Stable. - Discharge Instructions: Thoracic Strain. - Prescriptions for Ibuprofen 800 mg Oral Tablet - take 1 tablet by ORAL route every 8 hours As needed take with food; 30 tablet. Ultracet 37.5- 325 mg Oral Tablet - take 1 tablet by ORAL route every 6 hours - for up to 5 days; do not exceed 8 tablets per day.; 30 tablet. Zanaflex 4 mg Oral Tablet - take 1 tablet by ORAL route every 8 hours As needed; 20 tablet. - Medication Reconciliation Form, Thank You Letter, Antibiotic Education, Prescription Opioid Use form. - Follow up: Private Physician; When: 2 - 3 days; Reason: Recheck today's complaints, Continuance of care, Re-evaluation by your physician. Follow up: Johan Alejandro; When: 2 - 3 days; Reason: Recheck today's complaints, Continuance of care, Re-evaluation by your physician. - Problem is new. - Symptoms have improved. Signatures: Dispatcher [employer] EDMS Mario Stevens MD MD cha Mickail, Joel, PA PA jmm Bryson, James, RN RN jb4 Tang Rueda RN RN rr5 Chely Woods RN RN ca1 Corrections: (The following items were deleted from the chart) 20:13 20:13 05/02/2020 20:13 Discharged to Home. Impression: Strain of muscle and tendon of jmm back wall of thorax; Fall (on) (from) unspecified stairs and steps; Multiple fractures of ribs, right side; Pleural effusion in conditions classified elsewhere. Condition is Stable. Discharge Instructions: Back Pain, Adult, Fall Prevention in the Home, Back Pain, Adult, Yagi-ll-Pape, Incentive Spirometer, Rib Fracture, Rib Fracture, Islw-of-Jrbj, Pleural Effusion. Prescriptions for Ibuprofen 600 mg Oral Tablet - take 1 tablet by ORAL route every 6 hours As needed take with food; 20 tablet, Tylenol-Codeine #3 300-30 mg Oral Tablet - take 2 tablets by ORAL route every 6 hours As needed; 24 tablet, Cyclobenzaprine 5 mg Oral Tablet - take 1 tablet by ORAL route 3 times per day As needed; 15 tablet. and Forms are Medication Reconciliation Form, Thank You Letter, Antibiotic Education, Prescription Opioid Use. Follow up: Private Physician; When: 2 - 3 days; Reason: Recheck today's complaints, Continuance of care, Re-evaluation by your physician. Follow up: Johan Alejandro; When: 2 - 3 days; Reason: Recheck today's complaints, Continuance of care, Re-evaluation by your physician. Problem is new. Symptoms have improved. christina 21:06 20:35 05/02/2020 20:35 Discharged to Home. Impression: Strain of muscle and tendon of rr5 back wall of thorax; Fall (on) (from) unspecified stairs and steps; Multiple fractures of ribs, right side; Pleural effusion in conditions classified elsewhere. Condition is Stable. Prescriptions for Ibuprofen 600 mg Oral Tablet - take 1 tablet by ORAL route every 6 hours As needed take with food; 20 tablet, Tylenol-Codeine #3 300-30 mg Oral Tablet - take 2 tablets by ORAL route every 6 hours As needed; 24 tablet, Cyclobenzaprine 5 mg Oral Tablet - take 1 tablet by ORAL route 3 times per day As needed; 15 tablet. and Forms are Medication Reconciliation Form, Thank You Letter, Antibiotic Education, Prescription Opioid Use. Follow up: Private Physician; When: 2 - 3 days; Reason: Recheck today's complaints, Continuance of care, Re-evaluation by your physician. Follow up: Johan Alejandro; When: 2 - 3 days; Reason: Recheck today's complaints, Continuance of care, Re-evaluation by your physician. Problem is new. Symptoms have improved. christina
[2020-05-02 21:33] VITALS: BP 171/81; TEMP 97.8; O2SAT 97
[2020-05-02 21:38] LABS: Urine Blood NEGATIVE (NEG); Urine Glucose NEGATIVE (NEG); Urine Protein NEGATIVE (NEG); Urine pH 5.5 (5.0-7.0)
== END 2020-05-02 21:06 | disposition home or self-care (01) ==
LOC: ER 17:07
DX: S22.41XA Multiple fractures of ribs, right side, initial encounter for closed fracture (principal); S29.012A Strain of muscle and tendon of back wall of thorax, initial encounter; J91.8 Pleural effusion in other conditions classified elsewhere; W17.89XA Other fall from one level to another, initial encounter; Y93.9 Activity, unspecified; Y92.9 Unspecified place or not applicable
CPT/HCPCS: 85025; 36415; 81003; 83690; 80053; 70450; 72125; 71260; 74177; 71045; 72148; Q9967; J7030; 82565; 99284